=== PATIENT | female | born 1995 | race African-American/Black ===

== ENCOUNTER 2016-06-26 06:21 | Emergency (ER) | payer OTHER ==
[~2016-06-26] VITALS: Ht 167.6 cm; Wt 77.3 kg
[2016-06-26] MEDS ORDERED: IPRATROPIUM BROMIDE 0.5 MG/2.5 ML NEB SOLUTION NEB ONE (06:45)
[2016-06-26] MEDS ORDERED: ALBUTEROL SULFATE 5 MG/ML 20 ML NEB SOLN [BULK] NEB ONE (06:45)
[2016-06-26] MEDS ORDERED: 0.9% SODIUM CHLORIDE 15 ML NEB SOLUTION NEB ONE (06:59)
[2016-06-26] MEDS ORDERED: PredniSONE 20 MG TABLET PO ONE (07:30)
[2016-06-26 08:08] VITALS: BP 122/75
== END 2016-06-26 08:29 | disposition home or self-care (01) ==
LOC: EMS 06:22
DX: J45.901 Unspecified asthma with (acute) exacerbation (principal)
CPT/HCPCS: 94644; 99285; J7512; J7611

== ENCOUNTER 2018-05-18 05:02 | Emergency (ER) | payer OTHER ==
[~2018-05-18] VITALS: Ht 168.9 cm; Wt 72.7 kg
[2018-05-18] MEDS ORDERED: ALBU8.5H8 IH (05:05)
[2018-05-18] MEDS ORDERED: ALBUTEROL SULFATE 5 MG/ML 20 ML NEB SOLN [BULK] NEB ONE (05:15)
[2018-05-18] MEDS ORDERED: IPRATROPIUM BROMIDE 0.5 MG/2.5 ML NEB SOLUTION NEB ONE (05:15)
[2018-05-18] MEDS ORDERED: 0.9% SODIUM CHLORIDE 5 ML NEB SOLUTION NEB ONE (05:25)
[2018-05-18 07:20] VITALS: BP 128/75
== END 2018-05-18 07:39 | disposition home or self-care (01) ==
LOC: EMS 05:03
DX: J45.901 Unspecified asthma with (acute) exacerbation (principal); F12.90 Cannabis use, unspecified, uncomplicated; Z79.899 Other long term (current) drug therapy
CPT/HCPCS: 94644